=== PATIENT | female | born 1935 | race Caucasian/White ===

== ENCOUNTER 2019-01-18 15:10 | Observation (INO) | payer OTHER ==
[~2019-01-18] VITALS: Ht 154.9 cm; Wt 60.3 kg
[2019-01-18 15:25] LABS: Chloride (POC) 98 mmol/L (98-108); Creatinine (POC) 0.9 mg/dL (0.6-1.0); Glucose (ISTAT POC) 95 mg/dL (70-99); Hemoglobin (POC) 12.9 g/dL (12.0-16.0); Potassium (POC) 4.3 mmol/L (3.5-5.5); Sodium (POC) 134 mmol/L (135-148); Total CO2 (POC) 24 mmol/L (21-32)
[2019-01-18 15:30] LABS: BASOPHILS ABSOLUTE AUTO 0.02 K/mm3 (0.00-0.23); BASOPHILS PERCENT AUTO 0 % (0-2); EOSINOPHILS ABSOLUTE AUTO 0.08 K/mm3 (0.00-0.68); EOSINOPHILS PERCENT AUTO 1 % (0-6); Hematocrit 38.1 % (33.0-51.0); Hemoglobin 13.1 g/dL (11.5-16.0); IMMATURE GRAN ABSOLUTE AUTO 0.02 K/mm3 (0.00-0.10); IMMATURE GRAN PERCENT AUTO 0 % (0-1); LYMPHOCYTES ABSOLUTE AUTO 1.83 K/mm3 (0.84-5.20); LYMPHOCYTES PERCENT AUTO 22 % (21-46); MONOCYTES ABSOLUTE AUTO 0.54 K/mm3 (0.16-1.47); MONOCYTES PERCENT AUTO 6 % (4-13); Mean Corpuscular HGB 33.2 pg (26.0-34.0); Mean Corpuscular HGB Conc 34.4 g/dL (31.5-36.5); Mean Corpuscular Volume 97 fL (80-100); Mean Platelet Volume 10.2 fL (9.1-12.4); NEUTROPHILS ABSOLUTE AUTO 5.94 K/mm3 (1.96-9.15); NEUTROPHILS PERCENT AUTO 71 % (41-73); Platelet Count 254 K/mm3 (150-400); RDW Coefficient Variation 12.8 % (11.7-14.2); RDW Standard Deviation 45.5 fL (35.1-46.3); Red Blood Cell Count 3.94 M/mm3 (3.80-5.20); White Blood Cell Count 8.43 K/mm3 (4.00-11.30)
[2019-01-18 15:56] LABS: Troponin I <0.015 ng/mL (0.000-0.040)
[2019-01-18 16:01] LABS: Alanine Aminotransfer (ALT/SGP 34 U/L (12-78); Albumin, Blood 3.5 g/dL (3.4-5.0); Alk Phos 87 U/L (50-136); Anion Gap 7 mmol/L (6-16); Aspartate Aminotrans (AST/SGOT 15 U/L (12-37); Bilirubin, Total 0.4 mg/dL (0.1-1.0); Blood Urea Nitrogen 18 mg/dL (8-24); Bun/Creatinine Ratio 23.2 (12.0-20.0); CO2, Blood 26 mmol/L (21-32); Calcium, Blood 8.7 mg/dL (8.5-10.1); Chloride, Blood 103 mmol/L (98-108); Creatinine, Blood 0.78 mg/dL (0.40-1.00); Globulin, Blood 3.4 g/dL (2.2-4.0); Glomerular Filtration Rate >60 (60-); Glucose, Blood 95 mg/dL (70-99); Potassium, Blood 4.3 mmol/L (3.5-5.5); Sodium, Blood 136 mmol/L (136-145); Total Protein, Blood 6.9 g/dL (6.4-8.2)
[2019-01-18] MEDS ORDERED: CLOB.05TO (16:04)
[2019-01-18] MEDS ORDERED: Calcium 600 Wi1 EAC3 PO (16:04)
[2019-01-18] MEDS ORDERED: ALBU90OI INH (16:04)
[2019-01-18] MEDS ORDERED: FERSU300 PO (16:05)
[2019-01-18] MEDS ORDERED: MONT10T PO (16:05)
[2019-01-18] MEDS ORDERED: MELATONIN5 M1 PO (16:05)
[2019-01-18] MEDS ORDERED: Hair, Skin & N1 EACH PO (16:06)
[2019-01-18] MEDS ORDERED: SIMV10 PO (16:06)
[2019-01-18] MEDS ORDERED: TIOT18 INH (16:08)
[2019-01-18] MEDS ORDERED: TOCO1000 PO (16:13)
--- NOTE | 2019-01-18 19:10 | NUR ---
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 PATIENT PLACED ON ICU MONITORING, SHOWING 100% PACED RHYTHM 80'S. PATIENT VERBALIZED NEED TO URINATE PLACED ON BEDPAN VOIDING 900 CC OF CLEAR YELLOW URINE. PATIENT C/O PAIN TO LEFT SHOULDER, ICE PLACED TO SHOULDER AND TYLENOL GIVEN FOR PAIN, AND LEFT SHOULDER IMMOBILIZER PLACED. WITH GOOD PAIN RELIEF. PATIENT ADMIT HX COMPLETE WITH PATIENT AND PATIENTS DAUGHTER ANDREW.
--- NOTE | 2019-01-18 21:46 | NUR ---
PATIENT UP TO BSC WITH MIN ASSISTANCE. DOING WELL WITH NOT USING LEFT ARM. NO C/O DIZZINESS OR LIGHT HEADED. PATIENT SINCERE PO MEDICATIONS WITHOUT DIFFICULTY.
--- NOTE | 2019-01-19 02:51 | NUR ---
WHILE SLEEPING BIOX DOWN TO 83% OXYGEN PLACE 2L/NC. PATIENT VERBALIZED THAT SHE TRIED CPAP ONCE AND DIDN'T LIKE IT AND SENT IT BACK. PATIENT AGREEING TO WEAR OXYGEN WHILE SLEEPING.
--- NOTE | 2019-01-19 06:22 | NUR ---
SUMMARY PATIENT SLEEPING OFF AND ON T/O NIGHT. NAIL CUTTER SHOWING PACED RHYTHM T/O NIGHT. SLING IN PLACE TO LEFT ARM. DRESSING TO LEFT SHOULDER CD&I. ICE TO SHOULDER ON AND OFF T/O NIGHT. GOOD PAIN CONTROL WITH TYLENOL. UP IN ROOM WITH MIN ASSIST.
--- NOTE | 2019-01-19 06:46 | NUR ---
TO X-RAY FOR 2 VIEW CXR. PATIENT SOB WITH ACTIVITY. PATIENT VERBALIZED THE SOB IS NORMAL FOR HER. PATIENT QUICK TO RECOVER WITH REST. PATIENT UP IN CHAIR WHEN BACK TO ROOM.
--- NOTE | 2019-01-19 07:15 | NUR ---
START OF SHIFT NOTE: RECEIVED REPORT FROM GAURAV HAINES RN, ASSUMED CARE, PATIENT IS AWAKE, ALERT AND ORIENTED, SITTING IN A CHAIR, WATCHING TV, LEFT ARM IN AN IMMOBILIZER, PATIENT STATES "THIS IS A REMINDER FOR ME NOT TO USE THE ARM", LEFT UPPER CHEST INCISION SITE COVERED WITH GAUZE, BUT NO DRAINAGE NOTED, PATIENT DENIES PAIN, STATES A LITTLE DISCOMFORT AND ICE WAS APPLIED TO THE AREA, BILATERAL AC PIV'S ARE S/L, LUNG SOUNDS ARE MOSTLY CLEAR, OCCASIONAL WHEEZES HEARD OVER RIGHT UPPER LOBE, LUNGS ARE DIMINISHED IN BASES, PATIENT HAS PPM AT DDD SETTING, AND IS 100 % V-PACED, BOWEL TONES PRESENT BUT HYPOACTIVE, USES TOILET IN ROOM, GOOD URINE OUTPUT, STRONG PEDAL PULSES NOTED, CALL LIGHT IN REACH, WILL CONTINUE TO MONITOR.
--- NOTE | 2019-01-19 07:37 | NUR ---
FAMILY IN TO SEE PATIENT.
--- NOTE | 2019-01-19 07:45 | NUR ---
DR. LEZAMA IN TO SEE PATIENT, ONCE ECHO IS DONE PATIENT MAY BE DISCHARGED IF OK WITH CARDIOLOGY.
--- NOTE | 2019-01-19 08:15 | NUR ---
DR. ESTRADA IN TO SEE PATIENT, OK WITH DISCHARGE FROM CARDIOLOGY STANDPOINT, ONCE ECHO IS DONE.
--- NOTE | 2019-01-19 08:41 | NUR ---
PATIENT RETURNED TO BED AND REPOSITIONED, PATIENT STATES "I DID NOT SLEEP MUCH LAST NIGHT, I AM TIRED", FAMILY LEAVING, WILL BE NOTIFIED WHEN DISCHARGE ORDERS AVAILABLE.
--- NOTE | 2019-01-19 09:38 | NUR ---
NOTIFIED DR. LEZAMA THAT ECHO WAS DONE AND DR. CARROLL POSTED THE REPORT, WILL WRITE DISCHARGE PAPERWORK.
[2019-01-19] MEDS ORDERED: AMLO10 PO (10:04)
[2019-01-19] MEDS ORDERED: FLUTICASONE-SA1 EAC1 INH (10:09)
[2019-01-19] MEDS ORDERED: Prednisone10 MG PO (10:11)
--- NOTE | 2019-01-19 10:20 | NUR ---
DR. CARROLL IN TO SEE PATIENT, OK WITH HIM TO DISCHARGE PATIENT HOME.
[2019-01-19] MEDS ORDERED: LOSA25 PO (11:32)
--- NOTE | 2019-01-19 12:00 | NUR ---
PATIENT RECEIVED HYDRALAZINE FOR SBP IN 180'S, IMMOBILIZER BELT REMOVED, PATIENT STATED SHE FELT "NAUSEOUS", ALSO C/O HEADACHE, BUT REFUSED MEDICATION, SETTLED FOR A COLD WASH CLOTH, CALL LIGHT IN REACH, WILL CONTINUE TO MONITOR.
--- NOTE | 2019-01-19 12:43 | NUR ---
PT C/O NAUSEA, DRY HEAVES W/O EMESIS. ZOFRAN IV GIVEN. HR 100 PACED. BP 146/58, DENIES C/O CHEST PAIN. BT'S VERY HYPERACTIVE T/O; CAN BE HEARD AT BEDSIDE.
--- NOTE | 2019-01-19 13:10 | NUR ---
PATIENT RECEIVED ZOFRAN 4 MG IV FOR NAUSEA, AND MARIA LUISA BALLARD, STATES SHE FEELS BETTER NOW, CALL LIGHT IN REACH, WILL CONTINUE TO MONITOR.
--- NOTE | 2019-01-19 13:11 | NUR ---
CALLED PATIENT'S DAUGHTER ABRAN WINSTON, AND LEFT MESSAGE THAT PATIENT HAS DISCHARGE ORDERS AND IS READY TO BE DISCHARGED.
--- NOTE | 2019-01-19 14:51 | NUR ---
PATIENT WAS DISCHARGED TO HOME, ALL DISCHARGED DOCUMENTATION WRITTEN AND VERBAL WAS GIVEN TO PATIENT AND TWO SONS AND EXPLAINED IN DETAIL, ALL QUESTIONS ANSWERED, SONS AND PATIENT WERE MADE AWARE THAT NEW MEDICATIONS WERE FAXED TO [facility], PATIENT AND SONS VERBALIZED UNDERSTANDING, PATIENT SIGNED DISCHARGE PAPERWORK, PIV'S REMOVED WITH TIP AND TUBING INTACT, PATIENT TOLERATED WELL, SLING WAS PLACED ON LEFT ARM TO REMIND PATIENT TO KEEP ARM FROM BEING LIFTED, ASSISTED PATIENT WITH GETTING DRESSED, ALL BELONGINGS WITH PATIENT, WHEELED OUT TO ER LOBBY AND ENTRANCE WHERE SONS WERE WAITING WITH CAR TO PROVIDE RIDE HOME.
== END 2019-01-19 14:50 | disposition home or self-care (01) ==
LOC: ER 15:10 → ICUW 15:11
PROVIDERS: Emergency Medicine; ADMIT Internal Medicine
DX: I44.2 Atrioventricular block, complete (principal); I35.0 Nonrheumatic aortic (valve) stenosis; I16.0 Hypertensive urgency; I10 Essential (primary) hypertension; J44.9 Chronic obstructive pulmonary disease, unspecified; E78.5 Hyperlipidemia, unspecified; F17.210 Nicotine dependence, cigarettes, uncomplicated; Z88.0 Allergy status to penicillin; Z79.899 Other long term (current) drug therapy
CPT/HCPCS: 33208; 36415; 71045; 71046; 80047; 80053; 84484; 85014; 85025; 93005; 93010; 93306; 96365; 96375; 99152; 99153; 99285-25; A9270; C1785; C1898; G0378; J0360; J1644; J1940; J2250; J2405; J3010; J3370; J7030; J7040